=== PATIENT | female | born 2005 | race African-American/Black ===

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

== ENCOUNTER 2023-07-11 18:02 | Emergency (ER) | payer OTHER | END 2023-07-11 18:44 | disposition left against medical advice (07) | LOC: ERS 18:02 | DX: Z53.21 Procedure and treatment not carried out due to patient leaving prior to being seen by health care provider (principal) ==

== ENCOUNTER 2023-11-13 22:53 | Emergency (ER) | payer OTHER ==
[2023-11-13] MEDS ORDERED: Acetaminophen 500 MG TAB ONE (23:23)
[2023-11-14 01:12] LABS: SARS-CoV-2 NAA Rapid Test Not Detected (NotDetected)
== END 2023-11-14 01:25 | disposition home or self-care (01) ==
LOC: ERS 22:53
DX: J10.1 Influenza due to other identified influenza virus with other respiratory manifestations (principal); R00.0 Tachycardia, unspecified
CPT/HCPCS: 71045; 96360

== ENCOUNTER 2024-03-12 14:11 | Emergency (ER) | payer OTHER ==
[2024-03-12] MEDS ORDERED: Ketorolac Tromethamine 30 MG (1 mL) VIAL ONE (14:48)
== END 2024-03-12 15:06 | disposition left against medical advice (07) ==
LOC: ERS 14:11
DX: R09.1 Pleurisy (principal)
CPT/HCPCS: 71045; 93005; J1885

== ENCOUNTER 2024-04-23 12:17 | Emergency (ER) | payer OTHER ==
[2024-04-23 14:15] LABS: HBCM Index 0.08 S/CO (0-0.79); HIV (1/2) Antibody/Antigen NONREACTIVE (NonReactive); HIV 1/2 INDEX 0.05 S/CO (<1.00); Hep A IgM AB NONREACTIVE (NonReactive); Hep A IgM S/CO 0.21 S/CO (0-0.79); Hep B Surf Ag NONREACTIVE S/CO (NonReactive); Hep C IgG Ab NONREACTIVE S/CO (NonReactive); Hep C Index 0.13 S/CO (0-0.79); Hepatitis B Core IgM Abs NONREACTIVE S/CO (NonReactive)
[2024-04-24 05:58] LABS: Chlam.trachomatis by PCR,Urine Not Detected (NotDetected); GC N.gonorrhoeae PCR,UrineVOID DETECTED (NotDetected)
[2024-04-24 11:05] LABS: Syphilis Antibody Nonreactive (Nonreactive); Syphilis Antibody Index 0.06 S/CO (<1.00 Non-Reactive)
== END 2024-04-23 14:20 | disposition home or self-care (01) ==
LOC: ERS 12:17
DX: M25.532 Pain in left wrist (principal); Z11.3 Encounter for screening for infections with a predominantly sexual mode of transmission; Y04.8XXA Assault by other bodily force, initial encounter
CPT/HCPCS: 36415; 80074; 86780; 87389; 87491; 87591

== ENCOUNTER 2024-04-26 13:24 | Emergency (ER) | payer OTHER | END 2024-04-26 14:54 | disposition home or self-care (01) | LOC: ERS 13:24 | DX: A54.9 Gonococcal infection, unspecified (principal) | CPT/HCPCS: 96372; 99282; J0696 ==

== ENCOUNTER 2024-09-08 08:45 | Emergency (ER) | payer OTHER ==
[2024-09-08] MEDS ORDERED: Acetaminophen 325 MG TAB ONE (10:00)
[2024-09-08] MEDS ORDERED: Dexamethasone 10 MG/ML VIAL ONE (10:00)
[2024-09-08 10:28] LABS: Pregnancy Test - Urine (BHCG) Negative (Negative); Pregu Control Background? CLEAR/WHITE (CLR/WHITE); Pregu Control Bar Appear? YES (CONTROL BAR); Specific Gravity 1.034 (1.002-1.036)
[2024-09-08] MEDS ORDERED: Ibuprofen 200 MG TAB ONE (10:35)
== END 2024-09-08 11:07 | disposition home or self-care (01) ==
LOC: ERS 08:45
DX: J03.90 Acute tonsillitis, unspecified (principal)
CPT/HCPCS: 81025; 87081; 87428; 87430; 99283; J1100

== ENCOUNTER 2025-06-10 17:19 | Emergency (ER) | payer OTHER, MEDICARE ==
[2025-06-10 19:59] LABS: CAUTI Indications for Culture Pregnancy; Glucose, Urine (Dipstick) Normal (Negative); Leukocyte 25 Leu/uL (Negative); Protein, Urine (Dipstick) 10 mg/dL (Neg-Trace); RBC/HPF 0-3 HPF (0-3); Specific Gravity, Urine 1.023 (1.002-1.036)
[2025-06-10 20:24] LABS: Bacteria/HPF Rare-Few HPF (None Seen)
[2025-06-10 20:25] LABS: Urine Culture Reflex Yes Yes
== END 2025-06-10 21:17 ==
LOC: ERS 17:19
DX: O99.612 Diseases of the digestive system complicating pregnancy, second trimester (principal); K59.00 Constipation, unspecified; Z3A.00 Weeks of gestation of pregnancy not specified
CPT/HCPCS: 81001; 87086; 99284

== ENCOUNTER 2025-06-27 21:28 | Emergency (ER) | payer OTHER, MEDICARE ==
[2025-06-27 22:15] LABS: #Basophils Less than 0.03 10x3/uL (0.0-0.2); #Eosinophils 0.24 10x3/uL (0.0-0.7); #Monocytes 0.62 10x3/uL (0.11-0.59); #Neutrophils 5.44 10x3/uL (1.40-6.50); %Basophils 0.3 % (0.0-1.0); %Eosinophils 3.1 % (0.0-10.0); %Lymphocytes 18.9 % (21.0-51.0); %Monocytes 7.9 % (0.0-10.0); %Neutrophils 69.4 % (42.0-75.0); Hematocrit 31.8 % (36.0-47.0); Hemoglobin 10.5 g/dL (12.0-16.0); Mean Corpuscular Hemoglobin 28.7 pg (27.0-31.0); Mean Corpuscular Volume 86.9 fL (78.0-98.0); Platelet Count 247 10x3/uL (130-400); Red Blood Cell (RBC) Count 3.66 mill/uL (4.20-5.40); White Blood Cell (WBC) Count 7.83 10x3/uL (4.8-10.8)
[2025-06-27 22:34] LABS: ALT (SGPT) 64 U/L (Less than 34); AST (SGOT) 45 U/L (11-34); Albumin 3.4 g/dL (3.1-4.5); Alkaline Phosphatase 44 U/L (40-110); Anion Gap 10 mmol/L (10-20); BUN (Urea Nitrogen) 8 mg/dL (7.0-18.7); Bilirubin, Total 0.2 mg/dL (0.3-1.2); Calc. Creatinine Clearance 0 mL/min (70-130); Calcium 9.0 mg/dL (7.8-10.44); Carbon Dioxide 20 mmol/L (22-29); Chloride 109 mmol/L (98-107); Globulin 3.6 g/dL (2.4-3.5); Glucose 83 mg/dL (70-105); Lipase 29 U/L (8-78); Potassium 3.6 mmol/L (3.5-5.1); Sodium 135 mmol/L (136-145)
[2025-06-28 01:31] LABS: Bacteria/HPF None Seen HPF (None Seen); CAUTI Indications for Culture Pregnancy; Glucose, Urine (Dipstick) Normal (Negative); Leukocyte 75 Leu/uL (Negative); Protein, Urine (Dipstick) 10 mg/dL (Neg-Trace); RBC/HPF None Seen HPF (0-3); Specific Gravity, Urine 1.031 (1.002-1.036)
[2025-06-28 01:36] LABS: Urine Culture Reflex Yes Yes
== END 2025-06-28 01:45 | disposition home or self-care (01) ==
LOC: ERS 21:28
DX: O23.42 Unspecified infection of urinary tract in pregnancy, second trimester (principal); N39.0 Urinary tract infection, site not specified; Z3A.21 21 weeks gestation of pregnancy
CPT/HCPCS: 76815; 80053; 81001; 83690; 85025; 86900; 86901; 87086; 99284

== ENCOUNTER 2025-07-06 13:48 | Emergency (ER) | payer OTHER, MEDICARE ==
[2025-07-06 14:43] LABS: #Basophils 0.03 10x3/uL (0.0-0.2); #Eosinophils 0.27 10x3/uL (0.0-0.7); #Monocytes 0.49 10x3/uL (0.11-0.59); #Neutrophils 5.73 10x3/uL (1.40-6.50); %Basophils 0.4 % (0.0-1.0); %Eosinophils 3.4 % (0.0-10.0); %Lymphocytes 17.5 % (21.0-51.0); %Monocytes 6.2 % (0.0-10.0); %Neutrophils 72.0 % (42.0-75.0); Hematocrit 29.5 % (36.0-47.0); Hemoglobin 9.6 g/dL (12.0-16.0); Mean Corpuscular Hemoglobin 28.4 pg (27.0-31.0); Mean Corpuscular Volume 87.3 fL (78.0-98.0); Platelet Count 278 10x3/uL (130-400); Red Blood Cell (RBC) Count 3.38 mill/uL (4.20-5.40); White Blood Cell (WBC) Count 7.95 10x3/uL (4.8-10.8)
[2025-07-06 16:03] LABS: CAUTI Indications for Culture Pelvic or flank pain; Glucose, Urine (Dipstick) Normal (Negative); Leukocyte 75 Leu/uL (Negative); Protein, Urine (Dipstick) 20 mg/dL (Neg-Trace); Specific Gravity, Urine 1.033 (1.002-1.036)
[2025-07-06 16:04] LABS: Bacteria/HPF 1+ HPF (None Seen)
[2025-07-06 16:05] LABS: Urine Culture Reflex No No
== END 2025-07-06 16:57 | disposition home or self-care (01) ==
LOC: ERS 13:48
DX: O46.92 Antepartum hemorrhage, unspecified, second trimester (principal); O99.891 Other specified diseases and conditions complicating pregnancy; R82.71 Bacteriuria; Z3A.24 24 weeks gestation of pregnancy
CPT/HCPCS: 36415; 76815; 81001; 84702; 85025

== ENCOUNTER 2025-10-07 14:30 | Emergency (ER) | payer MEDICARE, OTHER | END 2025-10-07 16:48 | disposition home or self-care (01) | LOC: ERS 14:30 | DX: J39.9 Disease of upper respiratory tract, unspecified (principal); B34.9 Viral infection, unspecified | CPT/HCPCS: 87428; 99283 ==